=== PATIENT | male | born 1955 | race Caucasian/White ===

== ENCOUNTER → 2019-06-28 | Day surgery (SDC) | payer OTHER ==
[~2019-06-28] MED LIST: COZAAR 25 MG TA25 M1 PO; FOLIC ACID1 MG PO; PRINIVIL5 MG PO; TOPROL XL25 MG PO
--- NOTE | ~2019-06-28 | PROC ---
[address] [address] PROCEDURE REPORT Name: JANELLE HAIDER Room: [facility]#: [id number] Admission: 06/28/19 Attend Phys: Aguilar Shellye MD Discharge: Date of : 53 Report #: [id number] THIS REPORT FOR: //name// For GI report, please see the Provation report in Perceptive 7 content. By: 0652Medical Records Staff BELLE /NGA
[2019-06-28 09:26] LABS: HEMATOCRIT 37.8 % (42.0-52.0); HEMOGLOBIN 12.7 gm/dL (14.0-18.0); MCH 33.2 pg (26.0-34.0); MCHC 33.5 g/dL (28.0-37.0); MCV 99.1 fL (80.0-100.0); MPV 8.4 fl. (7.2-11.1); RBC 3.82 mil/uL (4.50-6.00); RDW-CV 13.1 % (10.5-14.5); WBC 5.1 thou/uL (4.0-11.0)
[2019-06-28 09:31] LABS: CALCIUM 9.2 mg/dL (8.5-10.1); CREATININE 1.3 mg/dL (0.6-1.3); POTASSIUM 4.1 mmol/L (3.5-5.1)
[2019-06-28 09:36] LABS: TOTAL BILIRUBIN 0.9 mg/dL (<0.1-1.0); TOTAL PROTEIN 7.8 g/dL (6.4-8.2)
--- NOTE | 2019-06-28 10:34 | EKG ---
[place] [address] ELECTROCARDIOGRAM REPORT Name: JANELLE HAIDER Room: [facility]#: [id number] Admission: 06/28/19 Attend Phys: Aguilar Shelley MD Discharge: Date of : 53 Report #: [id number] THIS REPORT FOR: //name// [facility] Test Date: 2019-06-28 Test Time: 08:59:40 Pat Name: JANELLE HAIDER Department: Room: Gender: M Surg Tech: : 1955 Requested By: Duane Soto Order Number: [id number] Angi MD: Dada Nazario Measurements Intervals [place] Rate: 101 P: 19 IL: 225 QRS: -47 QRSD: 82 T: 48 QT: 358 QTc: 465 Interpretive Statements Sinus tachycardia Ventricular premature complex Prolonged [place] interval Inferior infarct, 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
--- NOTE | 2019-07-02 11:12 | PATH ---
[facility] [address] [place] [address] PATHOLOGY RPT PROCEDURE Name: JANELLE HIADER Room: [facility].#: [id number] Admission: 06/28/19 Date of : 53 Discharge: Report #: [id number] Path Case #: [id number] [facility] Accession Number: [id number] . 01 Material submitted: . PART A: colon - TRANSVERSE COLON POLYP. Modifiers: transverse PART B: colon - DESCENDING COLON POLYP. Modifiers: descending PART C: rectum - RECTAL POLYP . 01 Clinical history: . History of colon polyps. . 02 Diagnosis: A. Transverse colon polyp: - Tubular adenoma, negative for high grade dysplasia. . B. Descending colon polyp: - Tubular adenoma, negative for high grade dysplasia. . C. Rectal polyp: - Tubular adenoma, negative for high grade dysplasia. (TE:lissette; 07/01/2019) S 07/01/2019 1634 Local . 02 Electronically signed: . Wilfredo Alexandre MD, Pathologist NPI- [id number] . 01 Gross description: . A. Received in formalin labeled "Janelle Haider, transverse colon polyp" is a 0.3 x 0.2 x 0.1 cm aggregate of light-brown mucosa fragments. The specimen is submitted in A1. . B. Received in formalin labeled "Janelle Haider, descending colon polyp" is a 0.7 x 0.7 x 0.2 cm aggregate of light-brown mucosa fragments. The specimen is submitted in B1. . C. Received in formalin labeled "Janelle Haider, rectal polyp" is a 0.9 x 0.5 x 0.4 cm light-brown nodular fragment of mucosa. The margin is inked and the specimen is bisected and submitted in C1. ([facility] [place]; 06/29/2019) [facility] 06/29/2019 0927 Local . 02 Pathologist provided ICD-10: D12.3, D12.4, D12.8 . 02 CPT . 060107, 802207, 896995 Specimen Comment: A courtesy copy of this report has been sent to [phone], [place] [address] PATHOLOGY RPT PROCEDURE Name: JANELLE HAIDER Room: [facility]#: [id number] Admission: 06/28/19 Date of : 53 Discharge: Report #: [id number] Path Case #: [id number] Specimen Comment: [phone] Specimen Comment: Report sent to and Performed at: [address], [place], [place] [id number] MD Iker Wheeler MD Phone: [phone] Performed at: 02 [facility] [address], [place], [place] [id number] MD Wilfredo Alexandre MD Phone: [phone]
== END | disposition home or self-care (01) ==
LOC: M.SUR 08:38
PROVIDERS: Anesthesiology
DX: Z12.11 Encounter for screening for malignant neoplasm of colon (principal); Z86.010 Personal history of colon polyps; D12.3 Benign neoplasm of transverse colon; D12.4 Benign neoplasm of descending colon; D12.8 Benign neoplasm of rectum; K64.8 Other hemorrhoids; K57.30 Diverticulosis of large intestine without perforation or abscess without bleeding; K64.4 Residual hemorrhoidal skin tags; I10 Essential (primary) hypertension; F17.210 Nicotine dependence, cigarettes, uncomplicated; Z98.890 Other specified postprocedural states; Z79.899 Other long term (current) drug therapy